=== PATIENT | female | born 1965 | race Caucasian/White ===

== ENCOUNTER 2020-03-02 11:00 | Emergency (ER) | payer MEDICAID ==
[~2020-03-02] VITALS: Ht 170.2 cm; Wt 107.5 kg
[2020-03-02 11:06] VITALS: BP 172/92
--- NOTE | 2020-03-02 11:12 | NUR ---
WAIT AT LOBBY.
--- NOTE | 2020-03-02 11:42 | NUR ---
PT AMBULATED TO ER BED 04
--- NOTE | 2020-03-02 11:48 | NUR ---
54 YEAR OLD FEMALE COMPLAINS OF RIGHT LEG PAIN X 1 WEEK. RIGHT LEG DISCOLORED, RED, WARM TO TOUCH. PT STATES LEG LEAKS BLOOD AND PUS. PT AOX4, BREATHING EVEN AND UNLABORED, SKIN WARM AND DRY. BED IN LOWEST POSITION, LOCKED, BED RAIL UPX1. PMH - CHRONIC VENOUS INSUFFICIENCY ALLERGIES - NKA
--- NOTE | 2020-03-02 11:58 | NUR ---
ERMD AT BEDSIDE
[2020-03-02 13:33] VITALS: BP 146/107
--- NOTE | 2020-03-02 13:33 | NUR ---
APPLIED DRESSING TO LEFT LOWER LEG
--- NOTE | 2020-03-02 13:34 | NUR ---
Patient discharged with v/s stable. Written and verbal after care instructions given and explained. Patient alert, oriented and verbalized understanding of instructions. Ambulatory with steady gait. All questions addressed prior to discharge. ID band removed. Patient advised to follow up with PMD. Rx of keflex, bactrim, and norco given. Patient educated on indication of medication including possible reaction and side effects. Opportunity to ask questions provided and answered. Pt understands not to drive or operate heavy machinery with norco.
== END 2020-03-02 13:34 | disposition home or self-care (01) ==
LOC: MED 11:00
DX: L03.115 Cellulitis of right lower limb (principal)
CPT/HCPCS: 99283